=== PATIENT | female | born 1965 | race African-American/Black ===

== ENCOUNTER 2023-08-11 07:23 | Emergency (ER) | payer MEDICAID, SELFPAY ==
[2023-08-11 07:27] VITALS: BP 124/93; PULSE 102; RESP 18; TEMP 37.4; O2SAT 99; BMI 25.7
--- NOTE | 2023-08-11 07:35 | ECG_ITS ---
[facility] Test Date: 2023-08-11 Pat Name: BREEZY VIEIRA Department: Room: - Gender: Female [employer]: : [id number] Requested By: Order Number: [id number] Reading MD: GISSEL LEZAMA Measurements Intervals [place] Rate: 84 P: 60 IA: 168 QRS: -7 QRSD: 94 T: 65 QT: 358 QTc: 400 Interpretive Statements 1100 Sinus rhythm 2420 RSR (QR) in lead V1/V2, consistent with right ventricular conduction delay 5211 Minimal voltage criteria for LVH, may be normal variant 9130 borderline ECG No previous ECG available for comparison Electronically Signed On 08-12-2023 6:52:39 EST by GISSEL LEZAMA
--- NOTE | 2023-08-11 07:36 | ED_ITS ---
HPI - Psych General Chief Complaint: Psychiatric Symptoms Stated Complaint: SUICIDAL Time Seen by Provider: 08/11/23 07:26 Source: Reports patient Mode of arrival: law enforcement Limitations: Reports no limitations History of Present Illness HPI Narrative: 57-year-old female presents because she is depressed and wants to kill herself. She has not acted on these thoughts. She is from [place] and has been in this area for about a month. She had met somebody on Facebook and moved in with them here but then was kicked out just before coming into the emergency department. She talked about killing herself and police were called and they transported her here. Denies any drug use or alcohol use today. She has no physical complaints. Related Data Home Medications Medication Instructions Recorded Confirmed atenolol 50 mg tablet 25 mg PO DAILY 08/11/23 08/11/23 hydrochlorothiazide 25 mg tablet 25 mg PO QDAY 08/11/23 08/11/23 hydroxyzine HCl 25 mg tablet 25 mg PO TID PRN anxiety 08/11/23 08/11/23 lamotrigine 150 mg tablet 150 mg PO DAILY 08/11/23 08/11/23 (Lamictal) quetiapine 100 mg tablet 100 mg PO DAILY 08/11/23 08/11/23 trazodone 50 mg tablet 50 mg PO DAILY 08/11/23 08/11/23 Allergies Allergy/AdvReac Type Severity Reaction Status Date / Time No Known Drug Allergies Allergy Verified 08/11/23 07:26 Review of Systems ROS Narrative A ten point review of systems is negative except as noted above. PFSH PFSH Social History Smoking status: Current every day smoker Exam Narrative Exam Narrative: Nurses note and vital signs reviewed and patient is not hypoxic. General: The patient is tearful Skin: Warm, dry, no pallor noted. There is no rash noted. Head: Normocephalic, atraumatic Eye: Normal conjunctiva, no drainage Ears, Nose, Mouth, and Throat: oral mucosa is moist. Nares patent. Cardiovascular: Regular Rate and Rhythm Respiratory: breath sounds are equal. No ralees or rhonchi, breath sounds are clear Back: non-tender GI: soft and nontender Musculoskeletal: The patient has no evidence of calf tenderness, no pitting edema, symmetrical pulses noted bilaterally Neurological: A&O x4, normal speech Psychiatric: Cooperative, tearful Constitutional Vital Signs, click to edit/add: Last Vital Signs Temp 99.4 F 08/11/23 07:27 Pulse 102 H 08/11/23 07:27 Resp 18 08/11/23 07:27 BP 124/93 H 08/11/23 07:27 Pulse Ox 99 08/11/23 07:27 O2 Del Method Room Air 08/11/23 07:27 Course Vital Signs Vital signs: Vital Signs Temperature 99.4 F 08/11/23 07:27 Pulse Rate 102 H 08/11/23 07:27 Respiratory Rate 18 08/11/23 07:27 Blood Pressure 124/93 H 08/11/23 07:27 Pulse Oximetry 99 08/11/23 07:27 Oxygen Delivery Method Room Air 08/11/23 07:27 Temperature 99.4 F 08/11/23 07:27 Pulse Rate 102 H 08/11/23 07:27 Respiratory Rate 18 08/11/23 07:27 Blood Pressure 124/93 H 08/11/23 07:27 Pulse Oximetry 99 08/11/23 07:27 Oxygen Delivery Method Room Air 08/11/23 07:27 MDM - Psych MDM Narrative Medical decision making narrative: The patient is medically cleared and is going to be admitted to the psychiatric floor at [facility]. Differential Diagnosis Differential diagnosis: Likely acute psychosis, suicidal ideation, bipolar disorder, depression and acute anxiety Lab Data Attestation: I reviewed the patient's lab results. Labs: Lab Results 08/11/23 08/11/23 08/11/23 Range/Units 07:44 07:50 09:00 WBC 5.6 (4.0-11.0) 10^3/uL RBC 5.04 (4.20-5.40) 10^6/uL Hgb 15.5 (12.0-16.0) g/dL Hct 45.1 (36.0-48.0) % MCV 89.5 (81.0-99.0) fL MCH 30.8 (26.7-34.0) pg MCHC 34.4 (29.9-35.2) g/dL RDW 12.5 (11.0-15.0) % Plt Count 232 (150-450) 10^3/uL MPV 10.6 (9.5-13.5) fL Neut % (Auto) 52.9 (43.0-75.0) % Lymph % (Auto) 37.1 (20.5-60.0) % [place] % (Auto) 7.1 (1.7-12.0) % Eos % (Auto) 2.0 (0.9-7.0) % Baso % (Auto) 0.9 (0.2-2.0) % Neut # (Auto) 3.0 (1.4-6.5) 10^3/uL Lymph # (Auto) 2.1 (1.2-3.8) 10^3/uL [place] # (Auto) 0.4 (0.3-0.8) 10^3/uL Eos # (Auto) 0.1 (0.0-0.7) 10^3/uL Baso # (Auto) 0.1 (0.0-0.1) 10^3/uL Abs Immat Gran (auto) 0.00 (0.00-0.03) 10^3/uL Imm/Tot Granulo (auto) 0.0 (0.0-0.5) % Sodium 138 (136-145) mmol/L Potassium 2.7 L* (3.5-5.1) mmol/L Chloride 103 (98-107) mmol/L Carbon Dioxide 26.0 (21.0-32.0) mmol/L Anion Gap 11.7 BUN 12.0 (7.0-18.0) mg/dL Creatinine 0.97 (0.55-1.02) mg/dL Est GFR ( Amer) >60 (>=60) Est GFR (Non-Af Amer) 60 (>=60) BUN/Creatinine Ratio 12.4 Glucose 125 H (74-106) mg/dL Calcium 9.8 (8.5-10.1) mg/dL Urine Color Yellow (YELLOW) Urine Clarity Sl cloudy (CLEAR) Urine pH 5.5 (5.0-9.0) Ur Specific [place] >=1.030 A (1.005-1.025) Urine Protein 30 A (NEG/TRACE) mg/dL Urine Glucose (UA) Negative (NEGATIVE) mg/dL Urine Ketones Negative (NEGATIVE) mg/dL Urine Occult Blood Trace-l (NEGATIVE) Urine Nitrite Negative (NEGATIVE) Urine Bilirubin Negative (NEGATIVE) Urine Urobilinogen 0.2 (0.2-1.0) EU/dL Ur Leukocyte Esterase Negative (NEGATIVE) Urine RBC 2-5 A (0-2) #/HPF Urine WBC 2-5 A (NONE SEEN) #/HPF Ur Squamous Epith Cells Many A (NONE/RARE) #/LPF Urine Crystals Seen A (None Seen) #/HPF Amorphous Sediment Rare Urine Bacteria Moderate A (NONE SEEN) #/HPF Urine Casts None seen (NONE SEEN) #/LPF Urine Mucus Moderate A (NONE SEEN) Salicylates 4.7 (<=19.9) mg/dL Urine Opiates Screen Negative (NEGATIVE) Ur Buprenorphine Scrn Negative (NEGATIVE) Ur Oxycodone Screen Negative (NEGATIVE) Urine Methadone Screen Negative (NEGATIVE) Acetaminophen <2.0 L (10.0-30.0) ug/mL Ur Barbiturates Screen Negative (NEGATIVE) U Tricyclic Antidepress Positive A (NEGATIVE) Ur Phencyclidine Scrn Negative (NEGATIVE) Ur Amphetamines Screen Negative (NEGATIVE) U Methamphetamines Scrn Negative (NEGATIVE) U Benzodiazepines Scrn Negative (NEGATIVE) Urine Cocaine Screen Negative (NEGATIVE) U Cannabinoids Screen Negative (NEGATIVE) Ethanol Quant <3 mg/dL SARS-CoV-2 Ag (CV2AG) Negative (NEGATIVE) ECG Data Attestation: I personally reviewed and interpreted this ECG as follows: (EKG on my interpretation shows sinus rhythm without acute change.) Discharge Plan Discharge Chief Complaint: Psychiatric Symptoms Clinical Impression: Suicidal ideation Patient Disposition: [facility] Time of Disposition Decision: 10:40 Discharge Location: [facility] Condition: Good Mode of Transportation: EMS
[2023-08-11 07:46] VITALS: PULSE 91; RESP 12
[2023-08-11 07:52] LABS: Basophils Absolute Auto 0.1 10^3/uL (0.0-0.1); Basophils Percent Auto 0.9 % (0.2-2.0); Eosinophils Absolute Auto 0.1 10^3/uL (0.0-0.7); Hematocrit 45.1 % (36.0-48.0); Hemoglobin 15.5 g/dL (12.0-16.0); Lymphocytes Absolute Auto 2.1 10^3/uL (1.2-3.8); Lymphocytes Percent Auto 37.1 % (20.5-60.0); Mean Corpuscular HGB Conc 34.4 g/dL (29.9-35.2); Mean Corpuscular Hemoglobin 30.8 pg (26.7-34.0); Mean Corpuscular Volume 89.5 fL (81.0-99.0); Mean Platelet Volume 10.6 fL (9.5-13.5); Monocytes Absolute Auto 0.4 10^3/uL (0.3-0.8); Monocytes Percent Auto 7.1 % (1.7-12.0); Neutrophils Percent Auto 52.9 % (43.0-75.0); Platelet Count 232 10^3/uL (150-450); Red Blood Count 5.04 10^6/uL (4.20-5.40); Red Cell Distribution Width 12.5 % (11.0-15.0); White Blood Count 5.6 10^3/uL (4.0-11.0)
[2023-08-11 08:07] LABS: Bilirubin Urine NEGATIVE (NEGATIVE); Blood Urine TRACE-L (NEGATIVE); Clarity Urine SL CLOUDY (CLEAR); Color Urine YELLOW (YELLOW); Glucose Urine UA NEGATIVE (NEGATIVE); Ketones Urine NEGATIVE (NEGATIVE); Leukocyte Esterase Urine NEGATIVE (NEGATIVE); Nitrite Urine NEGATIVE (NEGATIVE); Protein Urine 30 mg/dL (NEG/TRACE); Specific Gravity Urine >=1.030 (1.005-1.025); Urobilinogen Urine 0.2 EU/dL (0.2-1.0); pH Urine 5.5 (5.0-9.0)
[2023-08-11 08:08] LABS: Anion Gap 11.7; BUN Creatinine Ratio 12.4; Calcium 9.8 mg/dL (8.5-10.1); Chloride 103 mmol/L (98-107); Estimated GFR (African America >60 (>=60); Estimated GFR (Non-African Ame 60 (>=60); Glucose 125 mg/dL (74-106); Salicylate 4.7 mg/dL (<=19.9); Sodium 138 mmol/L (136-145)
[2023-08-11 08:20] LABS: Bacteria Urine MODERATE #/HPF (NONE SEEN); Mucus Urine MODERATE (NONE SEEN); Squamous Epithelial Cell Urine MANY #/LPF (NONE/RARE)
[2023-08-11 08:21] LABS: Amorphous Sediment Urine RARE; Amphetamine Screen Urine NEGATIVE (NEGATIVE); Barbiturates Screen Urine NEGATIVE (NEGATIVE); Benzodiazepines Screen Urine NEGATIVE (NEGATIVE); Buprenorphine Screen Urine NEGATIVE (NEGATIVE); Cannabinoid Screen Urine NEGATIVE (NEGATIVE); Cast Seen? NONE SEEN #/LPF (NONE SEEN); Cocaine Screen Urine NEGATIVE (NEGATIVE); Crystals Seen? Seen #/HPF (None Seen); Methadone Screen Urine NEGATIVE (NEGATIVE); Methamphetamines Screen Urine NEGATIVE (NEGATIVE); Opiate Screen Urine NEGATIVE (NEGATIVE); Oxycodone Screen Urine NEGATIVE (NEGATIVE); Phencyclidine Screen Urine NEGATIVE (NEGATIVE); Tricyclic Antidepressant Urine POSITIVE (NEGATIVE)
[2023-08-11 08:29] LABS: Acetaminophen <2.0 ug/mL (10.0-30.0); Potassium 2.7 mmol/L (3.5-5.1)
[2023-08-11 08:30] LABS: Ethanol <3 mg/dL
[2023-08-11 09:45] LABS: SARS-CoV-2 Ag NEGATIVE (NEGATIVE)
[2023-08-11 10:06] VITALS: BP 129/87; PULSE 88; RESP 16; O2SAT 98
[2023-08-11 10:47] VITALS: BP 121/71; PULSE 88; RESP 14; O2SAT 98
== END 2023-08-11 11:00 ==
PROVIDERS: Emergency Provider Emergency Medicine
DX: R45.851 Suicidal ideations (principal); Z20.822 Contact with and (suspected) exposure to COVID-19; Z79.899 Other long term (current) drug therapy; F17.210 Nicotine dependence, cigarettes, uncomplicated
CPT/HCPCS: 36415; 80048; 80179; 80307; 80320; 80329; 81001; 85025; 87811; 93005; 99285